=== PATIENT | female | born 1955 | race Caucasian/White ===

== ENCOUNTER → 2023-10-29 10:49 | Outpatient (REF) | payer OTHER, SELFPAY | LOC: WDC 10:49 | PROVIDERS: ATTENDING PHYSICIAN Family Medicine | DX: Z12.31 Encounter for screening mammogram for malignant neoplasm of breast (principal); M81.8 Other osteoporosis without current pathological fracture | CPT/HCPCS: 77063; 77067; 77080 ==

== ENCOUNTER 2024-02-05 09:32 | Emergency (ER) | payer OTHER, SELFPAY ==
[2024-02-05 09:33] VITALS: BP 138/91
--- NOTE | 2024-02-05 09:48 | ED.GENMED ---
History of Present Illness
General
Chief Complaint: Abdominal Pain
Source: patient
Time Seen by Provider: 02/05/24 09:41
History of Present Illness
History of Present Illness:
69yoF with a history of hyperlipidemia and GERD presenting for evaluation of abdominal pain. She reports pain in her lower abdomen that initially started 2 days ago. Pain is worst in the suprapubic region. Pain is improved today and is currently
rated as a 2/10 in severity. She also reports constipation and small pellet like stools. She has had similar pains in the past with diverticulitis. Of note, patient was on an antibiotic last week for a UTI although she was told that her urine
culture came back normal. She denies any urinary symptoms currently. No fevers, chills, vomiting. No previous abdominal surgeries.
Past History
Past History
ED Past Medical History: GERD and Hypercholesterolemia
ED Past Surgical History: Other (Lipoma removal)
Social History
Tobacco: Non-smoker
Personal:
Living: with family
Phy Exam
General Physical Exam
General Presentation: well appearing and no apparent distress
General age: appears stated age
General Skin: warm and dry
General Habitus: normal
General Mental: alert
Cardiovascular Exam
Cardiovascular Exam: regular rate/rhythm
Pulmonary Exam
Pulmonary Exam: no respiratory distress
Gastrointestinal Exam
Gastrointestinal Exam: soft, non distended and tender (+Mild tenderness throughout lower abdomen, worse in the suprapubic region. No rebound or guarding. No CVA tenderness. )
Webster Coma Scale
Eye Opening: Spontaneous
Verbal Response: Oriented
Motor Response: Obeys Commands
GCS Total Score: 15
Skin Exam
Skin Exam: normal color and warm/dry
Psychiatric Exam
Psychiatric Exam: normal mood/affect
Course
Orders/Labs/Results
Orders:
Orders
02/05/24 09:47
CT Abd/pelvis W Iv Cont Urgent
Comment:
Reason For Exam: Lower abd pain
02/05/24 09:53
Complete Blood Count/With Diff Urgent
Comprehensive Metabolic Panel Urgent
Lipase Urgent
Abnormal Lab Results
02/05/24
09:53
MCH 31.6 H pg
(27.0-31.0)
Absolute Lymphs (auto) 0.8 L 10^3/uL
(1.2-3.4)
Neutrophils % 79.7 H %
(42.2-75.2)
Lymphocytes % 11.0 L %
(20.5-51.1)
Carbon Dioxide 17 L mmol/L
(22-30)
Total Bilirubin 1.5 H mg/dl
(0.2-1.3)
AST 55 H U/L
(14-36)
Alkaline Phosphatase 161 H U/L
(38-126)
02/05/24 09:53
02/05/24 09:53
Vital Signs
Initial and Last Documented VS:
Initial Vital Signs
Temp Pulse Resp BP Pulse Ox
97.8 F 101 20 138/91 97
02/05/24 09:33 02/05/24 09:33 02/05/24 09:33 02/05/24 09:33 02/05/24 09:33
Last Documented Vital Signs
Temp Pulse Resp BP Pulse Ox
97.8 F 101 20 117/81 96
02/05/24 09:33 02/05/24 09:33 02/05/24 09:33 02/05/24 10:13 02/05/24 10:45
MDM/Problems Addressed
Differential Diagnosis Includes:
69yoF here with lower abd pain x 2 days. Associated with constipation. Patient believes she has diverticulitis. Sent here by PCP. No f/c. She is afebrile and hemodynamically stable. She is well appearing in no distress. No signs of peritonitis on
abdominal exam. Differential diagnosis includes but is not limited to: diverticulitis, appendicitis, UTI, kidney stone, nonspecific abdominal pain
Initial ED plan: Check abdominal labs, UA, and CT abdomen. Patient declines analgesics.
*Critical Care Note
Total Time (30-74mins, 75-104mins- exclusive of procedures): Not Applicable
Update Note
Update Note:
Labs reveal a normal white count. AST mildly elevated at 55 and bilirubin 1.5. Lipase normal. [address] shows uncomplicated diverticulitis. No evidence of perforation or abscess. There is a small lung nodule seen incidentally. Patient has no smoking
history. Patient informed of incidental finding and provided with a copy of her CT scan results. She was started on a course of Augmentin. Advised clear liquid diet until pain improves. Advised f/u with PCP and strict ED return precautions
discussed. She was discharged in stable condition.
ED Attending Note
-
Portions of this chart may have been created with voice recognition software.� Occasional wrong word or��sound alike� substitutions may have occurred due to the inherent limitations of voice recognition software.
Discharge Plan
Departure
Patient Disposition: Home (Routine Discharge)
Date of Disposition: 02/05/24
Time of Disposition: 12:14
Patient with high blood pressure during this ER visit?: No
Discharge Problem:
Acute diverticulitis, Incidental lung nodule
Instructions: Diverticulitis (DC)
Prescriptions:
New
amoxicillin-pot clavulanate 875-125 mg tablet
1 tab PO BID Qty: 20 0RF
No Action
hydrocodone-acetaminophen 1 TABLET tablet
1 tab PO Q4HPRN PRN (Reason: pain) Qty: 15 0RF
Referrals:
Marilyn Palomino MD [Family Provider] -
Activity Restrictions/Additional Instructions:
Take antibiotics as prescribed. Eat a clear liquid diet until pain improves.
Please follow-up with your family doctor. Return to the ER with any worsening symptoms, fevers, severe pain, or if you do not improve in 3-4 days.
Interventions
Interventions:
*Risk Screen - Suicide Last Done: 02/05/24 10:07
*General Assessment Last Done: 02/05/24 10:07
*Neglect/Abuse Screening Last Done: 02/05/24 10:07
ED- Fall Risk Assessment Last Done: 02/05/24 10:07
*ED COVID-19 Vaccine History Last Done: 02/05/24 10:07
*Nursing Disposition Last Done: 02/05/24 12:24
BO-Sorwtj-Hzyjvriosg Assessment Last Done: 02/05/24 10:07
Discharge Date and Time
Discharge Date/Time: 02/05/24 12:25
Print Language: ALBANIAN
[2024-02-05 10:07] VITALS: BMI 26.6
[2024-02-05 10:13] VITALS: BP 117/81
[2024-02-05 10:26] LABS: % Basophils 0.3 % (0-2); % Eosinophils 0.5 % (0-6); % Immature Granulocytes 0.3 % (0-0.5); % Monocytes 8.2 % (1.7-9.3); % Neutrophils 79.7 % (42.2-75.2); Absolute Lymphocytes 0.8 10^3/uL (1.2-3.4); Absolute Monocytes 0.6 10^3/uL (0.1-0.6); Hematocrit 41.6 % (37.0-47.0); Hemoglobin 14.6 g/dL (12.0-16.0); Mean Corp Hgb Conc. 35.1 g/dL (33.0-37.0); Mean Corpuscular Hgb 31.6 pg (27.0-31.0); Mean Platelet Volume 9.6 fL (7.4-10.4); Nucleated Red Blood Cells % 0 %; Platelet Count 224 10^3/uL (130-400); Red Blood Cell Count 4.62 10^6/uL (4.20-5.40); White Blood Cell Count 7.5 10^3/uL (4.8-10.8)
[2024-02-05 10:38] LABS: ALT (SGPT) 31 U/L (0-35); AST (SGOT) 55 U/L (14-36); Albumin 4.7 g/dl (3.5-5.0); Alkaline Phosphatase 161 U/L (38-126); Blood Urea Nitrogen 13 mg/dl (7-17); Calcium 9.9 mg/dl (8.4-10.2); Carbon Dioxide 17 mmol/L (22-30); Chloride 104 mmol/L (98-107); Estimated Creatinine Clearance 53 ml/min; Glucose 98 mg/dl (70-99); Lipase 90 U/L (23-300); Potassium 4.4 mmol/L (3.5-5.1); Sodium 139 mmol/L (135-145); Total Bilirubin 1.5 mg/dl (0.2-1.3); Total Protein 6.9 g/dl (6.3-8.2); eGFR > 60.00
== END 2024-02-05 12:25 | disposition home or self-care (01) ==
LOC: EMR 09:32
PROVIDERS: Physician Assistant; EMERGENCY PHYSICIAN Emergency Medicine; FAMILY PHYSICIAN Family Medicine
DX: K57.32 Diverticulitis of large intestine without perforation or abscess without bleeding (principal); R91.1 Solitary pulmonary nodule; E78.00 Pure hypercholesterolemia, unspecified; K21.9 Gastro-esophageal reflux disease without esophagitis
CPT/HCPCS: 99285; 74177; 80053; 83690; 85025; Q9967

== ENCOUNTER → 2024-08-25 10:31 | Outpatient (REF) | payer OTHER, SELFPAY | LOC: MRI 3T 10:31 | PROVIDERS: ATTENDING PHYSICIAN Orthopaedic Surgery; FAMILY PHYSICIAN Family Medicine | DX: M17.11 Unilateral primary osteoarthritis, right knee (principal) | CPT/HCPCS: 73721 ==

== ENCOUNTER → 2024-10-29 11:29 | Outpatient (REF) | payer OTHER, SELFPAY | LOC: WDC 11:29 | PROVIDERS: ATTENDING PHYSICIAN Family Medicine | DX: Z12.31 Encounter for screening mammogram for malignant neoplasm of breast (principal) | CPT/HCPCS: 77063; 77067 ==